=== PATIENT | female | born 1970 | race Caucasian/White ===

== ENCOUNTER 2023-01-08 10:49 | Emergency (ER) | payer MEDICARE, MEDICAID, SELFPAY ==
[2023-01-08 10:55] VITALS: BP 160/99; PULSE 82; RESP 16; TEMP 36.9; O2SAT 99
[2023-01-08 11:54] LABS: Appearance Urine Cloudy (Clear); Bacteria Urine 1+ /hpf; Bilirubin Urine Negative (Negative); Blood Urine 3+ (Negative); Color Urine Dark Yellow (Yellow); Glucose Urine UA Negative (Negative); Hyaline Casts Urine Present /lpf; Ketones Urine Trace mg/dL (Negative); Leukocyte Esterase Ur Negative LEU/UL (Negative); Need Manual Microscopic Reviewed; Nitrate Urine Negative (Negative); Non Pathogenic Casts >20; Protein Urine 1+ mg/dL (Negative); RBC Urine 21-50 /hpf (0-2); Specific Grav Ur 1.028 (1.001-1.035); Squamous Epithelial Cell Urine Many /hpf (Few); WBC Urine 0-5 /hpf
[2023-01-08 11:55] LABS: Add Urine Microscopic? YES
[2023-01-08 12:00] VITALS: BP 109/89; PULSE 84; RESP 16; O2SAT 98
[2023-01-08 12:07] LABS: Basophils Percent Auto 0.3 % (0.2-1.2); Eosinophils Percent Auto 0.2 % (0-4.4); Hematocrit 42.4 % (37.0-47.0); Immature Granulocyte Absolute 0.02 K/mm3 (0.00-0.031); Immature Granulocyte Percent A 0.3 % (0-0.5); Lymphocytes Absolute Auto 0.85 K/mm3 (0.9-3.2); Lymphocytes Percent Auto 14.2 % (18.3-44.2); Mean Corpuscular Hemoglobin 30.3 pg (26-34); Mean Corpuscular Volume 91.8 fl (80-100); Monocytes Absolute Auto 0.9 K/mm3 (0.1-0.6); Neutrophils Absolute Auto 4.2 K/mm3 (1.3-6.7); Platelet Count Result 263 k/mm3 (150-375); Red Blood Count 4.62 M/mm3 (4.2-5.4); Red Cell Distribution Width 15.8 % (11.5-14.5)
[2023-01-08 12:15] LABS: Alanine Aminotransferase 36 U/L (6-35); Albumin Level 4.5 g/dL (3.5-5.1); Alkaline Phosphatase 80 U/L (38-126); Anion Gap 14 mmol/L (8-16); Aspartate Amino Transferase 63 U/L (14-36); Bilirubin,Total 0.7 mg/dL (0.2-1.3); Blood Urea Nitrogen 18 mg/dL (7-17); Calcium 9.8 mg/dL (8.4-10.2); Carbon Dioxide 21 mmol/L (22-30); Chloride 104 mmol/L (98-107); Creatine Kinase 159 U/L (30-135); Estimated CRCL calculation 48 ml/min; Estimated Glomerular Filt Rate 52; Glucose 106 mg/dL (65-110); Potassium 3.4 mmol/L (3.4-5.0); Sodium 139 mmol/L (137-145)
[2023-01-08] MEDS: KETOROLAC 30 MG/ML VIAL (*BKC) IM (12:22)
--- NOTE | 2023-01-08 12:40 | ED.GENADULT ---
HPI - General Adult General Chief complaint: Unspecified Stated complaint: body aches and chills x 2 days Time Seen by Provider: 01/08/23 11:42 Source: patient Mode of arrival: ambulatory Limitations: no limitations History of Present Illness HPI narrative: This is a 52-year-old female who presents to the ED with chief complaint of diffuse body aches. Reports she ?thinks she has an infection in her body. ? Patient reports that she had to crawl to the bathroom yesterday due to diffuse body aches. Reports she has a little bit of suprapubic discomfort but no hematuria or dysuria. Denies flank pain, fevers, chills, nausea, vomiting, sore throat, ear pain, congestion, rashes or lesions. Related Data Allergies Allergy/AdvReac Type Severity Reaction Status Date / Time No Known Allergies Allergy Verified 01/08/23 10:50 Review of Systems Review of Systems: All systems as dictated in HPI Exam Narrative: GENERAL: Well-appearing, well-nourished, and in no acute distress. HEAD: Normocephalic, atraumatic. EYES: PERRLA and EOMI. ENT: Nares clear, no rhinorrhea or epistaxis. Mucous membranes moist. Oropharynx without tonsillar hypertrophy exudate or other lesions. NECK: Supple. No adenopathy or masses. CHEST: No respiratory distress. Clear to auscultation. No wheezes rales or rhonchi HEART: Regular rate and rhythm. No murmur heard. Normal peripheral pulses. ABDOMEN: Negative flank tenderness bilaterally. soft, grossly nontender, nondistended, normal active bowel sounds. MSK: Normal range of motion. No edema. SKIN: Warm, dry, no rash. NEURO: Alert and oriented x3. No focal deficits. PSYCH: Normal mood and affect. Course Vital Signs Vital signs: Vital Signs Temperature 98.4 F 01/08/23 10:55 Pulse Rate 82 01/08/23 10:55 Respiratory Rate 16 01/08/23 10:55 Blood Pressure 160/99 H 01/08/23 10:55 Pulse Oximetry 99 01/08/23 10:55 Temperature 98.1 F 01/08/23 13:00 Pulse Rate 82 01/08/23 13:00 Respiratory Rate 16 01/08/23 13:00 Blood Pressure 114/89 01/08/23 13:00 Pulse Oximetry 98 01/08/23 13:00 Medical Decision Making [facility] Narrative Medical decision making narrative: This is a 52-year-old female who presents the ED with chief complaint of body aches and suprapubic pressure. Vitals are normal. Exam remarkable for the same. Lab work largely unremarkable. Viral swabs are positive for COVID. UA does show 3+ blood, 1+ bacteria and greater than 20 casts. Will treat for possible UTI and sent culture. Overall symptoms most consistent with COVID viral syndrome. Expectant management given. Pt will be discharged in stable condition. Return precautions given and supportive measures discussed. Pt is understanding and agreeable with plan for discharge and follow-up with PCP. Vital Signs Vital Signs: Vital Signs Temperature 98.4 F 01/08/23 10:55 Pulse Rate 82 01/08/23 10:55 Respiratory Rate 16 01/08/23 10:55 Blood Pressure 160/99 H 01/08/23 10:55 Pulse Oximetry 99 01/08/23 10:55 Temperature 98.1 F 01/08/23 13:00 Pulse Rate 82 01/08/23 13:00 Respiratory Rate 16 01/08/23 13:00 Blood Pressure 114/89 01/08/23 13:00 Pulse Oximetry 98 01/08/23 13:00 Lab Data 01/08/23 12:01 01/08/23 12:01 Labs: Lab Results 01/08/23 01/08/23 Range/Units 11:30 12:01 WBC 6.0 (4.5-10.0) K/mm3 RBC 4.62 (4.2-5.4) M/mm3 Hgb 14.0 (12.0-15.0) g/dL Hct 42.4 (37.0-47.0) % MCV 91.8 (80-100) fl MCH 30.3 (26-34) pg MCHC 33.0 (32-36) g/dl RDW 15.8 H (11.5-14.5) % Plt Count 263 (150-375) k/mm3 MPV 9.0 (7.4-10.4) fl Immature Gran % (Auto) 0.3 (0-0.5) % Neut % (Auto) 70.0 (45.5-73.1) % Lymph % (Auto) 14.2 L (18.3-44.2) % [place] % (Auto) 15.0 H (2.6-8.5) % Eos % (Auto) 0.2 (0-4.4) % Baso % (Auto) 0.3 (0.2-1.2) % Lymph # (Auto) 0.85 L (0.9-3.2) K/mm3 [place] # (Auto) 0.9
[2023-01-08 12:43] LABS: Influenza A QL RT-PCR Negative (Negative); Influenza B QL RT-PCR Negative (Negative); SARS-CoV-2 RNA PCR Positive (Negative)
[2023-01-08 13:00] VITALS: BP 114/89; PULSE 82; RESP 16; TEMP 36.7; O2SAT 98
== END 2023-01-08 13:09 | disposition home or self-care (01) ==
PROVIDERS: General Practice; Emergency Provider Physician Assistant; PCP Nurse Practitioner Family
DX: U07.1 COVID-19 (principal); N39.0 Urinary tract infection, site not specified
CPT/HCPCS: 36415; 80053; 81001; 81025; 82550; 85025; 87636; 96372; 99283; J1885

== ENCOUNTER 2023-03-17 13:14 | Outpatient (CLI) | payer MEDICARE, MEDICAID, SELFPAY ==
--- NOTE | ~2023-03-17 | CT_ITS ---
CT Scan of the Chest without Contrast: Clinical Indication: Lung cancer screening, personal history of nicotine dependence Technique: Contiguous sections were acquired throughout the chest without intravenous contrast. Dose reduction technique was used on this scan by utilizing automated exposure control and iterative recon struction technique. The dose-length product (DLP) was 94.02 mGy-cm. Findings: There is no evidence of any significant mediastinal, hilar or axillary lymphadenopathy. The mediastin al soft tissues appear normal. There is no evidence of pleural or pericardial effusion. There is a 3.3 x 2.5 cm spiculated mass with cavitation is similar cavitation in the left upper lobe. There is moderate emphysema. Images through the upper abdomen reveal no abnormalities. Impression: Lung RADS 4B: Highly suspicious. Tissue sampling recommended to establish a histologic diagnosis for the left upper lobe lesion described above. Reviewed, dictated and finalized at [facility]. MILL OPERATOR Impression: Lung RADS 4B: Highly suspicious. Tissue sampling recommended to establish a his tologic diagnosis for the left upper lobe lesion described above.
== END 2023-03-17 13:15 | disposition home or self-care (01) ==
LOC: ANHIMG 13:15
PROVIDERS: PCP Nurse Practitioner Family; Visit Provider Internal Medicine Hematology & Oncology
DX: Z12.2 Encounter for screening for malignant neoplasm of respiratory organs (principal); Z87.891 Personal history of nicotine dependence; R91.8 Other nonspecific abnormal finding of lung field
CPT/HCPCS: 71271

== ENCOUNTER 2023-03-30 11:25 | Outpatient (CLI) | payer MEDICARE, MEDICAID, SELFPAY ==
--- NOTE | ~2023-03-30 | PE_ITS ---
EXAMINATION: PET skull to mid thigh DATE: 03/30/2023 13:53 INDICATION: Massive upper lobe of left lung. TECHNIQUE: Blood glucose level was 91 mg/dL. 10.704 mCi of 18-fluorodeoxyglucose (18-FDG) was adminis tered i.v. Low dose computed tomography (CT) images were acquired from the base of the brain to the p roximal thighs for attenuation correction and anatomic localization. Automated exposure control was e mployed. Dose-length product (DLP) was 780 mGy-cm. Positron emission tomography (PET) images were acq uired in the same distribution. COMPARISON: Chest CT 03/17/2023 FINDINGS: Head/neck: There are no pathologically enlarged lymph nodes. Chest: There is moderate emphysema. There are 5 mm, 5 mm, and 4 mm nodules in right upper lobe withou t increased activity. There is a 4.0 x 3.2 cm mass in left upper lobe with maximum SUV of 14.7. No pl eural effusion. The heart size is normal. No pericardial effusion. There is a small sliding hiatal he rnia. There is increased activity in normal-sized left hilar and mediastinal lymph nodes. There is di ffusely increased activity in the thyroid, likely benign. Abdomen/pelvis/proximal thighs: The liver, gallbladder, spleen, pancreas, adrenal glands, and kidneys are normal. There are no dilated loops of bowel. There is calcified atherosclerosis of the aorta and many of the other arteries. There are no pathologically enlarged lymph nodes. There is no free intra peritoneal fluid. There is no osseous malignancy. IMPRESSION: 1. 4.0 x 3.2 cm mass in left lung upper lobe with increased activity, consistent with primary broncho genic carcinoma. CT-guided biopsy is recommended. 2. Normal sized left hilar and mediastinal lymph nodes with increased activity, consistent with metas tatic disease. 3. Pulmonary nodules measuring up to 5 mm without increased activity, which may be granulomatous dise ase or metastatic disease. Reviewed, dictated and finalized at location A. L AND DINING ROOM CASHIER IMPRESSION: 1. 4.0 x 3.2 cm mass in left lung upper lobe with increased activity, consisten t with primary bronchogenic carcinoma. CT-guided biopsy is recommended. 2. Normal sized left hilar and mediastinal lymph nodes with increased activity, consistent with metastatic disease. 3. Pulmonary nodules measuring up to 5 mm without increased activity, which may be granulomatous disease or metastatic disease.
[2023-03-30 12:26] LABS: Glucose Point of Care 91 mg/dl (65-105)
== END 2023-03-30 11:26 | disposition home or self-care (01) ==
PROVIDERS: PCP Nurse Practitioner Family; Visit Provider Nurse Practitioner Family
DX: R91.8 Other nonspecific abnormal finding of lung field (principal)
CPT/HCPCS: 78815; A9552

== ENCOUNTER 2023-04-05 06:12 | Outpatient (CLI) | payer MEDICARE, MEDICAID, SELFPAY ==
[2023-03-29 10:12] VITALS: BMI 24.3
--- NOTE | 2023-03-29 10:12 | PC.NURSE ---
Pre Radiology instructions Report to the outpatient [facility] on date 04/05/23 at time 0900 for procedure Time: 1100. YOU MAY BE MONITORED AT HOSPITAL FOR UP TO 4 HOURS AFTER YOUR PROCEDURE. A visitor will be allowed to accompany the patient into the hospital. You and your visitor will be asked to self-screen and do not enter if you have any COVID symptoms. A mask is OPTIONAL within the hospital. Patients are to have no food or drink 6 hours prior to procedure time Driving will be restricted after the procedure, you must have a person to drive you home. Labs will be drawn in preop area and once reviewed, you will be taken to radiology area for procedure. When the procedure is completed, you will be taken to outpatient where you will be monitored for several hours. You may have one visitor in this area. Other than holding anti-coagulants, patient may take other medication(s) as scheduled. Prior to your appointment date patients are instructed to hold anti-coagulants after discussing with ordering provider to stop. If unable to discontinue anti-coagulants please notify radiologist. ? No aspirin or warfarin (Coumadin) for 7 days prior to the procedure. ? No clopidogrel (Plavix), ticagrelor (Brilinta), prasugrel (Effient) or dabigatran (Pradaxa) for 5 days prior to the procedure. ? No rivaroxaban (Xarelto), apixaban (Eliquis), dipyridamole (Aggrenox or Persantine) or cilostazol (Pletal) for 2 days prior to the procedure. Medications to discontinue per physician: ASPIRIN Date to take last dose: PT TOOK LAST DOSE TODAY, 03/29. PT AWARE NOT TO TAKE ANY MORE PRIOR TO PROCEDURE. Please leave all valuables, including medications, at home the day of procedure. The hospital will not accept responsibility for valuables. Wear comfortable, loose fitting clothing.? Follow any additional instructions given to you from ordering provider. Telephone instructions given to PT - PANFILO ABARCA and asked if any additional questions and then verbalized understanding. Patient advised to call scheduling provider office or registration scheduling [phone] if any additional questions.
[2023-04-05] VITALS (9 sets, daily range): BP systolic 110–129; BP diastolic 60–90; PULSE 59–78; RESP 16–20; TEMP 36.4; O2SAT 98–100
--- NOTE | ~2023-04-05 | CT_ITS ---
EXAMINATION: CT biopsy lung w/imaging DATE: 04/05/2023 12:41 INDICATION: Left upper lobe mass TECHNIQUE: The procedure including the risks and benefits was discussed with the patient. Risks discu ssed included infection, approximately 1/20 risk of symptomatic hemorrhage beyond mild hemoptysis, ap proximately 1/3 risk of pneumothorax, and approximately 1/10 risk of pneumothorax severe enough to wa rrant chest tube placement. The patient understood the risks and agreed to proceed. The patient was p laced supine. The skin overlying the infraclavicular anterior left upper chest was prepped and drape d in sterile fashion. Anesthetic was administered with 1% lidocaine subcutaneously. A 19 gauge oute r needle was advanced under CT guidance to the lesion of interest. A 20 gauge core biopsy needle was then used to obtain 5 core biopsy specimens. Given the presence of a very small pneumothorax at the s ite of the biopsy, the guide needle was withdrawn during injection of 5 mL of the patient's own blood . The entry site was cleaned and dressed. There were no immediate complications. The dose-length pro duct was 174.66 mGy-cm. FINDINGS: CT images demonstrate the outer needle tip adjacent to 4.0 x 3.5 cm spiculated mixed solid and cavitary mass at the left apex. Final images demonstrate minimal hemorrhage along the biopsy trac t which crosses the cephalad aspect of the nodule. There is a very small pneumothorax loculated adjac ent to the biopsied nodule in the final images. This had decreased in size on the 3 hour postbiopsy r adiograph prior to discharge. IMPRESSION: 1. Successful CT-guided biopsy of a 4.0 x 3.5 cm left apical mass. Reviewed, dictated and finalized at location A. DUE FURNACE OPERATOR
--- NOTE | ~2023-04-05 | XR_ITS ---
EXAMINATION: XR chest 1V DATE: 04/05/2023 12:43 INDICATION: Status post left lung biopsy TECHNIQUE: frontal view of the chest was obtained. COMPARISON: CT dated 03/25/2023 and 04/05/2023 FINDINGS: Again seen is a very small pneumothorax loculated along side the biopsied nodule in the lateral left upper lung zone which does not appear significantly changed accounting for differences in technique w hen compared with the immediate postbiopsy CT imaging. No pulmonary edema, pleural effusion or right- sided pneumothorax. The cardiomediastinal silhouette is normal. Visualized bones and soft tissues are unremarkable. IMPRESSION: 1. Very small loculated pneumothorax along side the biopsied left upper lobe nodule which is concerni ng for primary bronchogenic carcinoma. Reviewed, dictated and finalized at location A. OR STORE MANAGER IMPRESSION: 1. Very small loculated pneumothorax along side the biopsied left upper lobe no dule which is concerning for primary bronchogenic carcinoma.
--- NOTE | ~2023-04-05 | XR_ITS ---
EXAMINATION: XR chest 1V portable DATE: 04/05/2023 15:32 INDICATION: Status post percutaneous left lung biopsy TECHNIQUE: frontal view of the chest was obtained. COMPARISON: Chest radiograph dated 04/05/2023 at 1:31 PM FINDINGS: Interval decrease in size of a now tiny loculated pneumothorax along side the biopsied mass in the la teral left upper lobe. Again seen is a second subtle significantly smaller pulmonary nodule projectin g over the anterior right third rib. No new airspace opacities, pulmonary edema, pleural effusion or pneumothorax. The cardiomediastinal silhouette is normal. IMPRESSION: 1. Decrease in a now tiny pneumothorax loculated along side the biopsied left upper lobe nodule which remains concerning for primary bronchogenic carcinoma. Reviewed, dictated and finalized at location A. ECTIONAL SECURITY OFFICER IMPRESSION: 1. Decrease in a now tiny pneumothorax loculated along side the biopsied left u pper lobe nodule which remains concerning for primary bronchogenic carcinoma.
--- NOTE | ~2023-04-05 | XR_ITS ---
EXAMINATION: XR chest 1V portable DATE: 04/05/2023 13:35 INDICATION: Status post left percutaneous lung biopsy TECHNIQUE: frontal view of the chest was obtained. COMPARISON: Chest radiograph dated 04/05/2023 at 12:[address] dated 01/15/2024 FINDINGS: No interval change in a very small pneumothorax loculated along side the biopsied nodule at the left upper lung zone. There is additional small nodular opacity right upper lung zone projected between th e anterior right second and third ribs which is unchanged from the prior CT. No new airspace opacitie s, pulmonary edema, pleural effusion or right-sided pneumothorax. The cardiomediastinal silhouette is normal. IMPRESSION: 1. No interval change in a very small left pneumothorax loculated along side the biopsied 3.5 cm cavi tary nodule at the left upper lobe which remains concerning for primary bronchogenic carcinoma. Reviewed, dictated and finalized at location A. WORKER IMPRESSION: 1. No interval change in a very small left pneumothorax loculated along side th e biopsied 3.5 cm cavitary nodule at the left upper lobe which remains concerni ng for primary bronchogenic carcinoma.
[2023-04-05 09:45] LABS: Mean Platelet Volume 8.6 fl (7.4-10.4); Platelet Count Result 399 k/mm3 (150-375)
[2023-04-05 09:58] LABS: INR 0.9; Prothrombin Time 12.6 Seconds (11.1-14.7)
== END 2023-04-05 15:55 | disposition home or self-care (01) ==
PROVIDERS: PCP Nurse Practitioner Family; Referring Provider Nurse Practitioner Family; Visit Provider Radiology Diagnostic Radiology
PROC: BB24ZZZ Computerized Tomography (CT Scan) of Bilateral Lungs (ICD-10-PCS; CPT 32408; principal; 2023-04-05 11:00)
DX: C34.12 Malignant neoplasm of upper lobe, left bronchus or lung (principal)
CPT/HCPCS: 32408; 36415; 71045; 85049; 85610; 88305; 88342